=== PATIENT | female | born 1965 | race Hispanic/Latino ===

== ENCOUNTER 2024-10-26 02:10 | Inpatient (IN) | payer OTHER ==
[~2024-10-26] VITALS: Ht 154.9 cm; Wt 50.9 kg
[2024-10-26] VITALS (7 sets, daily range): BP systolic 140–151; BP diastolic 76–89; PULSE 61–79; RESP 18; TEMP 97.7–98.1; O2SAT 96–97
[2024-10-26] MEDS ORDERED: acetaMINOPHEN 650 MG SUPPOSITORY RC PRN (04:00)
[2024-10-26] MEDS ORDERED: ondanSETRON 4MG INJ IV PRN (04:00)
[2024-10-26] MEDS ORDERED: hydrALAZine 20MG/ML VIAL IV PRN (04:00)
--- NOTE | 2024-10-26 04:11 | HP ---
History of Present Illness Reason for Visit: Abdominal pain History of Present Illness Ms. Olvera is a 59-year-old female that was seen and examined today on 10/26/2024. Patient is a good historian of personal health. Patient states that she went to a freestanding Emergency Department, exceptional with a chief complaint of abdominal pain. Onset was 2:00 a.m. on 10/25/2024. Location is epigastric. Duration is constant with pain that waxes and wanes. Character is described as pressure. There was no alleviating factors. There was no aggravating factors. Patient reports associated nausea without any vomiting. At the freestanding Emergency Department patient was diagnosed with small-bowel obstruction. Transfer request was made so that patient could be evaluated by General surgery Service. Patient arrived with NG tube in place to left nare Past Medical History ADDITIONAL PAST MEDICAL HISTORY: [Celiac disease] SOCIAL HISTORY: [Negative for smoking, alcohol use, drug use. 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 Patient is typically independent of all her ADLs. Patient denies difficulty paying her bills. Patient has good access to health care through her insurance. Patient lives with the daughter Leonardo Velez] SURGICAL HISTORY: [Cholecystectomy, appendectomy] Review of Systems General: No Fever, No Chills, No Night Sweats, No Fatigue, No Malaise, No Appetite, No Other HEENT: No Head Aches, No Visual Changes, No Eye Pain, No Ear Pain, No Dysphasia, No Sinus Congestion, No Post Nasal Drip, No Sore Throat, No Other Pulmonary: No Dyspnea, No Cough, No Pleuritic Chest Pain, No Other Cardiovascular: No: Chest Pain, Palpitations, Orthopnea, Paroxysmal Noc. Dyspnea, Edema, Lt Headedness, Other Gastrointestinal: Nausea, Abdominal Pain; No: Vomiting, Diarrhea, Constipation, Melena, Hematochezia, Other Genitourinary: No Dysuria, No Frequency, No Incontinence, No Hematuria, No Retention, No Other Musculoskeletal: No: other, neck pain, shoulder pain, arm pain, back pain, hand pain, leg pain, foot pain Skin: No Urticaria, No Rash, No Other Neurological: No: Weakness, Numbness, Incoordination, Change in speech, Confusion, Seizures, Other Allergies: Coded Allergies: No Known Drug Allergies (Unverified Allergy, Unknown, 10/26/24) Exam Vital Signs Vital Signs Date Time Temp Pulse Resp B/P (MAP) Pulse Ox O2 Delivery O2 Flow Rate FiO2 10/26/24 03:20 97 Room Air* 0 21 General Appearance: Alert, Oriented X3, Cooperative, No acute distress HEENT: Atraumatic, EOMI Respiratory: Clear to auscultation, Normal air movement Cardiovascular: Regular rate, Regular rhythm, Normal S1, Normal S2 Abdominal: Soft, No tenderness Extremities: No edema Skin: No breakdown, No significant lesion Neuro: Normal gait, Normal speech, Strength at 5/5 X4 ext, Sensation intact, Cranial nerves 3-12 NL Psych/Mental Status: Mental status NL, Mood NL, Thoughts/Content NL Assessment/Plan ASSESSMENT: [ Small-bowel obstruction, POA Celiac disease] PLAN: [ Admit patient to medical floor as inpatient status. Patient will be followed by General surgery Service. Keep patient NPO. Nasogastric tube to intermittent wall suction. IV fluid maintenance therapy lactated Ringer's at 75 mL/HR As needed analgesia with morphine. Consider resuming home medications once patient is no longer NPO and home medications has been reconciled. GI prophylaxis, famotidine DVT prophylaxis, Gino's and SCDs ADVANCED CARE PLANNING 1. Which of the following were discussed? Hospice Care - Yes Therapeutic options - Yes Advance Directives - Yes - patient states that she does not have any advance directives in place at this time, however her daughter poly can make decisions for her if she becomes unable. Other discussions - patient wishes to remain a full code at this time 2. Discussed with who? Patient 3. Voluntary nature of this service was explained to the patient? Yes 4. Amount of time spent - __ 16 minutes 5. Reviewed by Physician? (if this service was performed by NPP) Yes This document was generated in part using voice recognition software, occasional wrong word or sound alike substitutions may have occurred due to the inherent limitations of voice recognition software. Read the chart carefully and recognize using context, where the substitutions have occurred. Although every effort was made to edit the content, switchboard and control room operator and typing errors may occur ATTESTATION BY PHYSICIAN I have seen and examined the patient. I reviewed the documentation, medical decision making, and treatment plan as noted by the mid-level provider above. I agree with the findings and plan of care. SELINA STONE COMPLIANCE PROGRAM MANAGER October 26, 2024 04:11
[2024-10-26] MEDS: LACTATED RINGERS 1000ML 1,000 ML IV SCH (04:28)
--- NOTE | 2024-10-26 04:35 | EKG ---
[facility] Test Date: 2024-10-26 Test Time: 03:31:17 Pat Name: YAMILET GAMBLE Department: [facility] Room: 330 1 Gender: F Gar[employer] Pick Up Man: JOSEPH : 1965 Requested By: SELINA STONE Order Number: [id number] Reading MD: Guanako York Measurements Intervals Crozier Rate: 66 P: 46 AR: 144 QRS: 21 QRSD: 86 T: 49 QT: 436 QTc: 457 Interpretive Statements Normal sinus rhythm No previous ECG available for comparison Electronically Signed On 10-26-2024 16:18:35 CDT by Guanako York Please click the below link to view image of tracing.
[2024-10-26 06:35] LABS: BASOPHILS # (AUTO) 0.03 K/uL (0.00-0.20); BASOPHILS % (AUTO) 0.4 % (0.0-5.0); EOSINOPHILS % (AUTO) 2.4 % (0.0-8.0); HEMATOCRIT 32.2 % (36-48); IMMATURE GRANULOCYTE ABSOLUTE 0.03 K/uL (0-1); LYMPHOCYTES # (AUTO) 1.5 K/uL (1.0-4.8); LYMPHOCYTES % (AUTO) 17.4 % (21.0-51.0); MEAN CORPUSCULAR HEMOGLOBIN 26.5 pg (27.0-33.0); MEAN CORPUSCULAR HGB CONC 33.5 g/dL (32.0-36.0); MEAN CORPUSCULAR VOLUME 78.9 fL (79-99); MONOCYTES # (AUTO) 0.6 K/uL (0.1-1.0); MONOCYTES % (AUTO) 6.5 % (3.0-13.0); NEUTROPHILS # (AUTO) 6.1 K/uL (1.8-7.7); NEUTROPHILS % (AUTO) 72.9 % (40.0-77.0); PLATELET COUNT (AUTO) 293 K/uL (130-400); RED BLOOD CELL COUNT(AUTO) 4.08 MIL/uL (4.00-5.50); RED CELL DISTRIBUTION WIDTH 14.4 % (11.0-15.5); WHITE BLOOD COUNT (AUTO) 8.4 K/uL (4.8-10.8)
[2024-10-26 06:57] LABS: ALBUMIN 2.9 g/dL (3.5-5.0); BILIRUBIN,TOTAL 0.4 mg/dL (0.2-1.0); CREATININE 0.8 mg/dL (0.5-1.0); MAGNESIUM 1.7 mg/dL (1.80-2.40); PHOSPHORUS 4.8 mg/dL (2.5-4.9); POTASSIUM 3.9 mmol/L (3.5-5.1); TOTAL PROTEIN, SERUM 6.4 g/dL (6.0-8.3)
[2024-10-26 07:04] LABS: INR 1.04 (0.85-1.15)
[2024-10-26 07:06] LABS: PARTIAL THROMBOPLASTIN TIME 29.9 SEC (26.3-35.5)
[2024-10-26] MEDS ORDERED: PoTASSium chloRIDE 20MEQ/100ML 100 ML IV PRN (09:00)
[2024-10-26 09:05] LABS: APPEARANCE,URINE CLEAR (CLEAR); BILIRUBIN,URINE NEGATIVE (NEGATIVE); COLOR,URINE COLORLESS (YELLOW); GLUCOSE, URINE (UA) NEGATIVE (NEGATIVE); KETONES,URINE 5 mg/dL (NEGATIVE); LEUKOCYTE ESTERASE ,URINE 25 Leu/uL (NEGATIVE); NITRATE,URINE NEGATIVE (NEGATIVE); OCCULT BLOOD,URINE NEGATIVE (NEGATIVE); PROTEIN,URINE NEGATIVE (NEGATIVE); UROBILINOGEN,URINE 0.2 mg/dL (0.2-1.0)
[2024-10-26] MEDS: FAMOTIDINE 20MG VIAL IV SCH (09:09)
[2024-10-26] MEDS: MAGNESIUM 2GM PREMIX 50ML 50 ML IV PRN (09:10)
[2024-10-26 09:11] LABS: ADD UA MICROSCOPIC YES
[2024-10-26 09:19] LABS: MUCUS,URINE RARE LPF (None Seen)
--- NOTE | 2024-10-26 09:38 | HMCIMG ---
Exam Type: CHEST 1VW Clinical Information: pre procedural Comparison: None Findings: The lungs are clear of infiltrates. The heart is normal in size. The bony and soft tissue structures of the chest are unremarkable. Impression: Clear lungs.
--- NOTE | 2024-10-26 10:37 | CONS ---
GENERAL SURGERY CONSULTATION NOTE Date/Time Patient Seen: October 26, 2024 11:20 a.m. Requesting Physician: [ ] Reason for Consultation: Small bowel obstruction History of Present Illness: This is a 59-year-old female who was evaluated at outside ER for upper abdominal pain that started around 2:00 a.m. in the morning. She had associated nausea and vomiting later on that day. Her last bowel movement was this morning. She denies passing any flatus. Outside CT scan at freestanding ER showed small- bowel obstruction with a transition point. She also has a history of being recently diagnosed with pyelonephritis and kidney stones. She is on antibiot ics. Her blood cultures came back positive for a drug-resistant bacteria. There are no contents in the NG tube canister. Past Medical History: Celiac disease Past Surgical History: Laparoscopic cholecystectomy Laparoscopic appendectomy Family History: Contributory Habits: [Never] smoker. [Denies] alcohol consumption. [Denies] illicit drug use Current Medications Medications (Trade) Dose Ordered Sig/Lizet Route Start Time Stop Time Status Last Admin Dose Admin Famotidine (Pepcid 20mg Vial) 20 mg DAILY IV 10/26/24 09:00 11/25/24 08:59 10/26/24 09:09 20 MG Lactated Ringer's 1,000 ml @ 75 mls/hr [id number] IV 10/26/24 04:00 11/25/24 03:59 10/26/24 04:28 75 MLS/HR Review of Systems: CONST: [No fever, fatigue, or weight changes.] EYES: [No recent vision problems.] ENT: [No congestion, ear pain, or sore throat.] C/V: [No chest pain, palpitations, or edema.] RESP: [No cough, congestion, wheezing or shortness of breath.] GI: [Positive for abdominal pain, nausea and vomiting : [No incontinence or dysuria.] SKIN: [No rash.] NEURO: [No headache, focal numbness or weakness, dizziness, or seizures.] PSYCH: [No depression or anxiety.] HEME: [No abnormal bruising or bleeding.] LYMPH: [No swollen glands.] Physical Examination: GENERAL: [No acute distress.] HEAD: [Normal with no signs of head trauma.] EYES: [PERRLA, EOMI, conjunctiva and sclera normal.] ENT: [Hearing grossly intact, normal oropharynx.] NECK: [Supple without JVD. There is no tenderness, lymphadenopathy, or masses. No thyromegaly. Normal carotid upstrokes without bruits.] LUNGS: [Clear breath sounds bilaterally. There are right basilar rales one third of the way up the chest. No wheezes, or rhonchi.] HEART: [Normal rate and rhythm. Normal S1 and S2 without mumurs, gallop or rub.] VASC: [Peripheral pulses +2 bilaterally.] ABD: [Bowel sounds normal, soft, nontender, nondistended, no masses, no organomegaly. No audible bruits.] : [Not examined] LYMPH: [No lymphadenopathy noted.] EXT: [No clubbing, cyanosis or edema.] SKIN: [No rashes or lesions noted.] NEURO: [Awake, alert, and oriented x3. No focal sensory or strength deficits noted.] Vital Signs (last 8hr) Date Time Temp Pulse Resp B/P (MAP) Pulse Ox O2 Delivery O2 Flow Rate FiO2 10/26/24 07:52 97.7 76 18 145/80 96 Room Air 10/26/24 03:20 97.7 61 18 147/89 98 Room Air 10/26/24 03:20 97 Room Air* 0 21 10/26/24 03:20 97 Room Air* 0 21 Laboratory: [ ] Hematology Labs: Test 10/26/24 06:13 Range/Units White Blood Count 8.4 4.8-10.8 K/uL Red Blood Count 4.08 4.00-5.50 MIL/uL Hemoglobin 10.8 L 12.0-16.0 g/dL Hematocrit 32.2 L 36-48 % Mean Corpuscular Volume 78.9 L 79-99 fL Mean Corpuscular Hemoglobin 26.5 L 27.0-33.0 pg Mean Corpuscular Hemoglobin Concent 33.5 32.0-36.0 g/dL Red Cell Distribution Width 14.4 11.0-15.5 % Platelet Count 293 130-400 K/uL Mean Platelet Volume 8.6 7.5-10.5 fL Immature Granulocyte % (Auto) 0.4 0-1 % Neutrophils (%) (Auto) 72.9 40.0-77.0 % Lymphocytes (%) (Auto) 17.4 L 21.0-51.0 % Monocytes (%) (Auto) 6.5 3.0-13.0 % Eosinophils (%) (Auto) 2.4 0.0-8.0 % Basophils (%) (Auto) 0.4 0.0-5.0 % Neutrophils # (Auto) 6.1 1.8-7.7 K/uL Lymphocytes # (Auto) 1.5 1.0-4.8 K/uL Monocytes # (Auto) 0.6 0.1-1.0 K/uL Eosinophils # (Auto) 0.20 0.00-0.70 K/uL Basophils # (Auto) 0.03 0.00-0.20 K/uL Absolute Immature Granulocyte (auto 0.03 0-1 K/uL Nucleated Red Blood Cells 0.0 0.0-0.19 % Chemistry Labs: Test 10/26/24 06:13 Range/Units Sodium Level 142 136-145 mmol/L Potassium Level 3.9 3.5-5.1 mmol/L Chloride Level 106 101-111 mmol/L Carbon Dioxide Level 29 21-32 mmol/L Blood Urea Nitrogen 12 7-18 mg/dL Creatinine 0.8 0.5-1.0 mg/dL Glomerular Filtration Rate Calc 86 >90 mL/min Random Glucose 87 70-105 mg/dL Total Calcium 8.9 8.5-10.1 mg/dL Phosphorus Level 4.8 2.5-4.9 mg/dL Magnesium Level 1.70 L 1.80-2.40 mg/dL Total Bilirubin 0.4 0.2-1.0 mg/dL Aspartate Amino Transf (AST/SGOT) 15 10-37 U/L Alanine Aminotransferase (ALT/SGPT) 14 12-78 U/L Alkaline Phosphatase 54 50-136 U/L Total Protein 6.4 6.0-8.3 g/dL Albumin 2.9 L 3.5-5.0 g/dL Coagulation Labs: Test 10/26/24 06:13 Range/Units Prothrombin Time 11.0 9.6-11.6 SEC Prothromb Time International Ratio 1.04 0.85-1.15 Activated Partial Thromboplast Time 29.9 26.3-35.[address] scan of the abdomen and pelvis showed high-grade small-bowel obstruction with transition point in right of midline at level L4-L5. There was no free air or there is no free fluid. Chest x-ray last night shows NG tube tip terminating in the cardia of the stomach. The suction Hole is actually in the esophagus abdominal film done this morning shows the same thing as well as dilated small bowel Diagnostics / Radiology: Assessment: 59-year-old female with small-bowel obstruction. I thought that she might have an ileus from the pyelonephritis however after reviewing the outside CT scan it looks more like a small bowel obstruction. She has not had any output out the NG tube because it is not in the correct position. She has a benign abdomen on physical exam (nontender, nondistended) but her radiographic films show evidence of a small-bowel obstruction. Plan: One. Continue NPO Two. Continue NG tube to low intermittent wall suction. We will order the nurse to advanced the NG tube 10 cm so that the actual suction port is in the stomach. Three. Repeat abdominal film tomorrow morning Four. Await for return of bowel function Five. Hospitalist team to manage pyelonephritis Six. Surgery to follow FRANCIS MENEZES MD October 26, 2024 10:36
--- NOTE | 2024-10-26 11:53 | NUR ---
DCP: HOME Pt currently lives with dgt Mini Olvera [phone] in a home. Pt denied any insecurities with food, mcc, and/or utilities. Pt does not have any DME, home health, or provider services. Pt is able to complete ADLs independently. PCP is Dr. Giorgio Hopkins and uses [facility] for any RX needs. At [place] pt will return home and dgt will assist with transportation. Addendum: 10/26/24 at 1155 by MUNA CONNOR SS Amended: Links added.
[2024-10-26] MEDS ORDERED: 0.9%NACL 50ML IV SCH (12:00)
--- NOTE | 2024-10-26 12:12 | HMCIMG ---
Exam Type: ABD 1VW Clinical Information: sbo Comparison: None Findings: Abdomen demonstrates no evidence of pathologic calcification or soft tissue mass. There are no radiopacities to suggest calculous disease. The intestinal gas pattern is within normal limits without evidence of dilatation to suggest obstruction or adynamic ileus. The bony structures are unremarkable. IMPRESSION: Normal abdomen.
[2024-10-26] MEDS: ZOSYN 3.375GM +NS 50ML IVPB SCH (12:23)
--- NOTE | 2024-10-26 12:39 | HMCIMG ---
Exam Type: ABD 1VW Clinical Information: VERIFY NGT PLACEMENT Comparison: None Findings: Abdomen demonstrates no evidence of pathologic calcification or soft tissue mass. There are no radiopacities to suggest calculous disease. The intestinal gas pattern is within normal limits without evidence of dilatation to suggest obstruction or adynamic ileus. The bony structures are unremarkable. IMPRESSION: Normal abdomen.
--- NOTE | 2024-10-26 13:39 | PN ---
[facility] PROGRESS NOTE Date of Service: October 26, 2024 Time of Service: 13:24 SUBJECTIVE: HPI Patient is a 59-year-old female that was seen and examined today on 10/26/2024. Patient is a good historian of personal health. Patient states that she went to a freestanding Emergency Department, exceptional with a chief complaint of abdominal pain. Onset was 2:00 a.m. on 10/25/2024. Location is epigastric. Duration is constant with pain that waxes and wanes. Character is described as pressure. There was no alleviating factors. There was no aggravating factors. Patient reports associated nausea without any vomiting. At the freestanding Emergency Department patient had a CT abdomen and pelvis and was diagnosed with small-bowel obstruction. Transfer request was made so that patient could be evaluated by General surgery Service. Patient arrived with NG tube in place to left nares. Interval History 10/26/24: Lying in bed at the time of evaluation. Alert and oriented and in no obvious distress.Patient has an NG tube to the left nares connected to intermittent suction. However no out can be seen. Patient denies any abdominal pain, nausea or vomiting. States that she has not had flatus but had a bowel movement this morning which was normal in consistency. Vital signs were unremarkable, Magnesium 1.7 which was replaced as per protocol. General surgery is on the case. Was seen by Dr Menezes this morning. Pending recommendations. Patient with positive blood culture results from urgent care. Will start patient on Zosyn 3.375mg IV. REVIEW OF SYSTEMS CONSTITUTIONAL: Denies fevers, chills, or night sweats. No unintentional weight loss reported. NEUROLOGICAL: Denies headache, amaurosis fugax, motor weakness, sensory deficit, vertigo/spinning sensation, gait abnormalities, or tremors. ENT: No hearing loss, otalgia, otorrhea, rhinitis, rhinorrhea, hoarseness, or sore throat. CARDIOVASCULAR: Denies any exertional angina, dyspnea on exertion, orthopnea, paroxysmal nocturnal dyspnea, palpitations, life-threatening arrhythmias, claudication. PULMONARY: Denies any shortness of breath, cough, phlegm/sputum, hemoptysis, pleuritic chest pain. SLEEP: Denies morning headaches, daytime somnolence or napping. Denies difficulty falling asleep, staying asleep, waking from sleep. Denies knowledge of snoring. GASTROINTESTINAL: Denies any type of dysphagia to either liquids or solids. Denies nausea, vomiting, pyrosis, early satiety, abdominal pain, diarrhea, constipation, or changes in stool consistency or caliber. Denies coffee-ground emesis, hematemesis, hematochezia, or melanotic stools. GENITOURINARY: Denies frequency, urgency, nocturia, hematuria or incontinence (Storage/Irritative symptoms.) Low urinary stream, straining to void, urinary intermittency or hesitancy, splitting of the voiding stream, terminal dribbling. ENDOCRINOLOGIC: Denies polyuria, polydipsia, polyphagia or heat/cold intolerances. HEMATOLOGIC: Denies thrombophilia/previous clots, or coagulopathy/bleeding disorders. ONCOLOGIC: Denies personal history of malignancy. DERMATOLOGIC: Denies rashes or pruritus. PSYCHIATRIC: Denies any suicidal or homicidal ideation. Denies hallucinations. PHYSICAL EXAM GENERAL APPEARANCE: The patient is awake, alert, and oriented, in no acute cardiopulmonary distress. NEUROLOGICAL: Cranial nerves II-XII grossly intact. Motor is 5/5 in bilateral upper and lower extremities proximal to distal. No sensory deficits. HEENT: Face is symmetric. Pupils are equal and reactive. Extraocular movements are intact. NECK: Supple. No JVD. No thyromegaly. No submental, submandibular, pre- /postauricular, occipital or supraclavicular lymphadenopathy. CHEST: Normal chest expansion. No Telemetry. LUNGS: Absence of any rales, rhonchi or any wheezing. CARDIOVASCULAR: Regular. S1 and S2 normal. No appreciable rubs, murmurs or gallops. ABDOMEN: Soft, nontender, and nondistended. There is no rebound, voluntary guarding, or rigidity. : Deferred. No Draper. EXTREMITIES: Non-edematous and not cyanotic. No clubbing. Good capillary refill. SKIN: No skin breakdown. Vital Signs (last 8hr) Date Time Temp Pulse Resp B/P (MAP) Pulse Ox O2 Delivery O2 Flow Rate FiO2 10/26/24 11:50 97.9 71 18 140/76 97 Room Air 10/26/24 07:52 97.7 76 18 145/80 96 Room Air LABS: Laboratory: Test 10/26/24 08:35 10/26/24 06:13 Range/Units Urine Color COLORLESS YELLOW Urine Appearance CLEAR CLEAR Urine pH 6.0 5.0-8.0 Urine Specific [place] 1.012 1.001-1.031 Urine Protein NEGATIVE NEGATIVE mg/dL Urine Glucose (UA) NEGATIVE NEGATIVE mg/dL Urine Ketones 5 H NEGATIVE mg/dL Urine Occult Blood NEGATIVE NEGATIVE Urine Nitrate NEGATIVE NEGATIVE Urine Bilirubin NEGATIVE NEGATIVE mg/dL Urine Urobilinogen 0.2 0.2-1.0 mg/dL Urine Leukocyte Esterase 25 H NEGATIVE Raji/uL Urine RBC 2-5 H 0-1 /HPF Urine WBC 11-25 H 0-1 /HPF Urine Bacteria None None Seen /HPF White Blood Count 8.4 4.8-10.8 K/uL Red Blood Count 4.08 4.00-5.50 MIL/uL Hemoglobin 10.8 L 12.0-16.0 g/dL Hematocrit 32.2 L 36-48 % Mean Corpuscular Volume 78.9 L 79-99 fL Mean Corpuscular Hemoglobin 26.5 L 27.0-33.0 pg Mean Corpuscular Hemoglobin Concent 33.5 32.0-36.0 g/dL Red Cell Distribution Width 14.4 11.0-15.5 % Platelet Count 293 130-400 K/uL Mean Platelet Volume 8.6 7.5-10.5 fL Immature Granulocyte % (Auto) 0.4 0-1 % Neutrophils (%) (Auto) 72.9 40.0-77.0 % Lymphocytes (%) (Auto) 17.4 L 21.0-51.0 % Monocytes (%) (Auto) 6.5 3.0-13.0 % Eosinophils (%) (Auto) 2.4 0.0-8.0 % Basophils (%) (Auto) 0.4 0.0-5.0 % Neutrophils # (Auto) 6.1 1.8-7.7 K/uL Lymphocytes # (Auto) 1.5 1.0-4.8 K/uL Monocytes # (Auto) 0.6 0.1-1.0 K/uL Eosinophils # (Auto) 0.20 0.00-0.70 K/uL Basophils # (Auto) 0.03 0.00-0.20 K/uL Absolute Immature Granulocyte (auto 0.03 0-1 K/uL Nucleated Red Blood Cells 0.0 0.0-0.19 % Prothrombin Time 11.0 9.6-11.6 SEC Prothromb Time International Ratio 1.04 0.85-1.15 Activated Partial Thromboplast Time 29.9 26.3-35.5 SEC Sodium Level 142 136-145 mmol/L Potassium Level 3.9 3.5-5.1 mmol/L Chloride Level 106 101-111 mmol/L Carbon Dioxide Level 29 21-32 mmol/L Blood Urea Nitrogen 12 7-18 mg/dL Creatinine 0.8 0.5-1.0 mg/dL Glomerular Filtration Rate Calc 86 >90 mL/min Random Glucose 87 70-105 mg/dL Total Calcium 8.9 8.5-10.1 mg/dL Phosphorus Level 4.8 2.5-4.9 mg/dL Magnesium Level 1.70 L 1.80-2.40 mg/dL Total Bilirubin 0.4 0.2-1.0 mg/dL Aspartate Amino Transf (AST/SGOT) 15 10-37 U/L Alanine Aminotransferase (ALT/SGPT) 14 12-78 U/L Alkaline Phosphatase 54 50-136 U/L Total Protein 6.4 6.0-8.3 g/dL Albumin 2.9 L 3.5-5.0 g/dL Current Medications Medications (Trade) Dose Ordered Sig/Lizet Route PRN Reason Start Time Stop Time Status Last Admin Dose Admin Acetaminophen (TYLenol 650MG SUPPOSITORY) 650 mg Q6H PRN RC MILD PAIN (1-3) 10/26/24 04:00 11/25/24 03:59 Famotidine (Pepcid 20mg Vial) 20 mg DAILY IV 10/26/24 09:00 11/25/24 08:59 10/26/24 09:09 20 MG Hydralazine HCl (APRESOLine 20MG INJ) 10 mg Q6H PRN IV For:SBP above 160;DBP above 90 10/26/24 04:00 11/25/24 03:59 Lactated Ringer's 1,000 ml @ 75 mls/hr [id number] IV 10/26/24 04:00 11/25/24 03:59 10/26/24 04:28 75 MLS/HR Magnesium Sulfate 50 ml @ 0 mls/hr PROTOCOL PRN IV PHARMACY DOSING 10/26/24 09:00 11/25/24 08:59 10/26/24 09:10 25 MLS/HR Morphine Sulfate (morPHINE 2MG SYG) 2 mg Q4H PRN IVP SEVERE PAIN (7-10) 10/26/24 04:30 11/02/24 04:29 Ondansetron HCl (zoFRAN 4MG INJ) 4 mg Q6H PRN IV NAUSEA/VOMITING 10/26/24 04:00 11/25/24 03:59 Piperacillin Sod/ Tazobactam Sod (Zosyn 3.375gm+NS 50ml) 3.375 gm Q8H IVPB 10/26/24 12:00 11/05/24 11:59 10/26/24 12:23 3.375 GM Potassium Chloride 100 ml @ 100 mls/hr AD PRN IV POTASSIUM PROTOCOL 10/26/24 09:00 11/25/24 08:59 Potassium Chloride (K-Dur/Klor-Con 20meq) 20 meq AD PRN PO POTASSIUM PROTOCOL 10/26/24 09:00 11/25/24 08:59 Potassium Chloride (KCl 10% Elixir 20meq/15ml) 20 meq AD PRN PO POTASSIUM PROTOCOL 10/26/24 09:00 11/25/24 08:59 Sodium Chloride (NS 50ml) 50 ml AD IV 10/26/24 12:00 11/25/24 11:59 DIAGNOSTICS / RADIOLOGY: PATIENT: YAMILET GAMBLE MR#: [id number] : 1965 SEX: F AGE: 59 LOCATION: [facility] ORDER [id number] STATUS: ADM IN REPORT#: [id number] SERVICE 1037 REASON: sbo ORDERING PHYSICIAN: FRANCIS MENEZES MD PROCEDURE: ABD 1VW - ABD 1VW Exam Type: ABD 1VW Clinical Information: sbo Comparison: None Findings: Abdomen demonstrates no evidence of pathologic calcification or soft tissue mass. There are no radiopacities to suggest calculous disease. The intestinal gas pattern is within normal limits without evidence of dilatation to suggest obstruction or adynamic ileus. The bony structures are unremarkable. IMPRESSION: Normal abdomen. DICTATED BY: SUZANNE VAUGHN MD DATE: 10/26/24 1209 ELECTRONICALLY SIGNED BY: SUZANNE VAUGHN MD DATE: 10/26/24 1212 ASSESSMENT: Small-bowel obstruction, POA Celiac disease POA Hypomagnesemia PLAN: General Surgery on the casen. Seen by Dr Menezes today. Keep patient NPO. Zosyn 3.375g IV ordered Hypomagnesemia. Replace as per protocol Repeat blood cultures ordered. Consult placed for Infectious Disease due to positive blood cultures. Pending recommendations. Nasogastric tube to intermittent wall suction. IV fluid maintenance therapy lactated Ringer's at 75 mL/HR As needed analgesia with morphine. GI prophylaxis, famotidine DVT prophylaxis, Gino's and SCDs PLAN: [ ] ATTESTATION BY PHYSICIAN I have seen and examined the patient. I reviewed the documentation, medical decision making, and treatment plan as noted by the resident provider above. I agree with the findings and plan of care. Thomas Vickers MD OBI,SILVANO Cali MD October 26, 2024 13:39
--- NOTE | 2024-10-26 15:57 | HMCIMG ---
Exam Type: CHEST 1VW Clinical Information: ng tube placement Comparison: None Findings: Nasogastric tube tip is noted in patient's stomach and no other interval changes are seen. IMPRESSION: Nasogastric tube tip in stomach.
--- NOTE | 2024-10-26 15:57 | HMCIMG ---
Exam Type: CHEST 1VW Clinical Information: ngt placement Comparison: None Findings: Nasogastric tube tip is noted in patient's stomach and no other interval changes are seen. IMPRESSION: Nasogastric tube tip in stomach.
--- NOTE | 2024-10-26 17:00 | HMCIMG ---
Exam Type: CHEST 1VW Clinical Information: ngt placement Comparison: None Findings and impression: Nasogastric tube with tip barely in stomach. Consider advancing several centimeters. No other interval changes.
--- NOTE | 2024-10-26 17:03 | HMCIMG ---
Exam Type: CHEST 1VW Clinical Information: ngt placement Comparison: None Findings and impression: More of the nasogastric tube is now coiled within the stomach lumen. No other interval changes.
--- NOTE | 2024-10-26 17:06 | CONS ---
INFECTIOUS DISEASE CONSULTATION NOTE Date of Service: October 26, 2024 Reason for Consultation: Urinary tract infection. Requesting Physician: Dr. Dilcia Pappas. HISTORY OF PRESENT ILLNESS: This is a 59-year-old female patient with past medical history of celiac disease, nephrolithiasis and urinary tract infection who was admitted from an urgent care for evaluation of small-bowel obstruction. Patient reported that she presented to the urgent care with chief complaint of abdominal pain and nausea. Stated that on 10/16/2024 she went to the urgent care for chief complaint of fever and chills and was diagnosed with urinary tract infection and was discharged on cephalexin and levofloxacin p.o which she has been taking. Was noted that the urine culture collected on 10/16/2024 came back positive with E coli and MDRO and the reason for this consult. On this admission the urinalysis is positive. Patient's WBC is 8.4 and a temperature of 97.7�. Patient has been started on Zosyn. On examination today in room 330 patient has an NG tube in place to low intermittent suction and still having some abdominal discomfort. Denied dysuria, urinary frequency and hematuria. Patient remains afebrile and current temperature is 97.9�. No emesis reported. We will continue current antibiotic and we will follow up on the final culture results. REVIEW OF SYSTEMS CONSTITUTIONAL: Reported fever and chills chills 1 week ago. HEAD/FACE: No signs of trauma. EENT: Denies eye pain, blurred vision, double vision, or light sensitivity. RESPIRATORY: Denies shortness of breath, cough, wheezing CARDIOVASCULAR: Denies chest pain, palpitation, syncope GASTROINTESTINAL/ABDOMINAL: Denies constipation and diarrhea. Abdominal pain and nausea, POA. GENITOURINARY: Denies dysuria or hematuria. MUSCULOSKELETAL: Denies joint pain, tenderness, or trauma. INTEGUMENTARY: Denies rash or itchiness NEUROLOGICAL/PSYCH: Denies anxiety, depression, heat or cold intolerance. PAST MEDICAL HISTORY: Celiac disease. Urinary tract infection. Nephrolithiasis. PAST SURGICAL HISTORY: Cholecystectomy. Appendectomy. PAST SOCIAL HISTORY: Denied current use of tobacco, alcohol or any other illicit drug. FAMILY HISTORY: Mother had diabetes mellitus, hypertension and lung cancer. Father had dementia. Coded Allergies: No Known Drug Allergies (Unverified Allergy, Unknown, 10/26/24) PHYSICAL EXAM EYES: Anicteric. Pupils equal and reactive. HENT: No oral thrush seen, moist Oral mucosa. NG tube in place. NECK: Supple, no JVD or thyromegaly. LUNGS: Good air entry. No rales, no rhonchi. CARDIOVASCULAR: S1, S2 regular. No murmur heard. ABDOMEN: Soft, bowel sounds present, no organomegaly. Tender on palpation. CENTRAL NERVOUS SYSTEM: Awake, alert, oriented x 3. SKIN: No rashes, no swelling. LYMPHATICS: No peripheral lymphadenopathy. MUSCULOSKELETAL: No joint swelling, erythema or tenderness. EXTREMITIES: No cyanosis or clubbing. BACK: No deformity, no pressure ulcer. GENITOURINARY: No dysuria or hematuria. Vital Sign (Last 24 Hours) 10/26/24 10/26/24 03:20 16:02 Temp 97.7 Pulse 79 Resp 18 B/P (MAP) 151/86 Pulse Ox 95 O2 Delivery Room Air O2 Flow Rate 0 FiO2 21 Intake & Output (last 24hrs) 10/25/24 10/25/24 10/26/24 14:59 22:59 06:59 Intake Total 0 ml Balance 0 ml LABS: Laboratory: Test 10/26/24 08:35 10/26/24 06:13 Range/Units Urine Color COLORLESS YELLOW Urine Appearance CLEAR CLEAR Urine pH 6.0 5.0-8.0 Urine Specific [place] 1.012 1.001-1.031 Urine Protein NEGATIVE NEGATIVE mg/dL Urine Glucose (UA) NEGATIVE NEGATIVE mg/dL Urine Ketones 5 H NEGATIVE mg/dL Urine Occult Blood NEGATIVE NEGATIVE Urine Nitrate NEGATIVE NEGATIVE Urine Bilirubin NEGATIVE NEGATIVE mg/dL Urine Urobilinogen 0.2 0.2-1.0 mg/dL Urine Leukocyte Esterase 25 H NEGATIVE Raji/uL Urine RBC 2-5 H 0-1 /HPF Urine WBC 11-25 H 0-1 /HPF Urine Bacteria None None Seen /HPF White Blood Count 8.4 4.8-10.8 K/uL Red Blood Count 4.08 4.00-5.50 MIL/uL Hemoglobin 10.8 L 12.0-16.0 g/dL Hematocrit 32.2 L 36-48 % Mean Corpuscular Volume 78.9 L 79-99 fL Mean Corpuscular Hemoglobin 26.5 L 27.0-33.0 pg Mean Corpuscular Hemoglobin Concent 33.5 32.0-36.0 g/dL Red Cell Distribution Width 14.4 11.0-15.5 % Platelet Count 293 130-400 K/uL Mean Platelet Volume 8.6 7.5-10.5 fL Immature Granulocyte % (Auto) 0.4 0-1 % Neutrophils (%) (Auto) 72.9 40.0-77.0 % Lymphocytes (%) (Auto) 17.4 L 21.0-51.0 % Monocytes (%) (Auto) 6.5 3.0-13.0 % Eosinophils (%) (Auto) 2.4 0.0-8.0 % Basophils (%) (Auto) 0.4 0.0-5.0 % Neutrophils # (Auto) 6.1 1.8-7.7 K/uL Lymphocytes # (Auto) 1.5 1.0-4.8 K/uL Monocytes # (Auto) 0.6 0.1-1.0 K/uL Eosinophils # (Auto) 0.20 0.00-0.70 K/uL Basophils # (Auto) 0.03 0.00-0.20 K/uL Absolute Immature Granulocyte (auto 0.03 0-1 K/uL Nucleated Red Blood Cells 0.0 0.0-0.19 % Prothrombin Time 11.0 9.6-11.6 SEC Prothromb Time International Ratio 1.04 0.85-1.15 Activated Partial Thromboplast Time 29.9 26.3-35.5 SEC Sodium Level 142 136-145 mmol/L Potassium Level 3.9 3.5-5.1 mmol/L Chloride Level 106 101-111 mmol/L Carbon Dioxide Level 29 21-32 mmol/L Blood Urea Nitrogen 12 7-18 mg/dL Creatinine 0.8 0.5-1.0 mg/dL Glomerular Filtration Rate Calc 86 >90 mL/min Random Glucose 87 70-105 mg/dL Total Calcium 8.9 8.5-10.1 mg/dL Phosphorus Level 4.8 2.5-4.9 mg/dL Magnesium Level 1.70 L 1.80-2.40 mg/dL Total Bilirubin 0.4 0.2-1.0 mg/dL Aspartate Amino Transf (AST/SGOT) 15 10-37 U/L Alanine Aminotransferase (ALT/SGPT) 14 12-78 U/L Alkaline Phosphatase 54 50-136 U/L Total Protein 6.4 6.0-8.3 g/dL Albumin 2.9 L 3.5-5.0 g/dL ASSESSMENT: Urinary tract infection with E coli. Infection with multidrug resistant organism. Abdominal pain. Small bowel obstruction. Nephrolithiasis. PLAN: Continue Zosyn as currently ordered. Continue pain management. Continue GI prophylaxis. General surgery following patient. We will follow up on the culture results. We will monitor electrolytes. Antibiotics to be adjusted when culture is updated or finalized. Thank you for allowing [facility] to participate in the care of this patient. This case was reviewed and discussed with my supervising physician and the above assessment and plan was formulated and agreed upon. ATTESTATION BY PHYSICIAN I have seen and examined the patient. I reviewed the documentation, medical dec ision making, and treatment plan as noted by the mid-level provider above. I agree with the findings and plan of care. TRAE CORBETT MD, [facility] October 26, 2024 17:06
[2024-10-27] VITALS (9 sets, daily range): BP systolic 145–157; BP diastolic 83–98; PULSE 70–86; RESP 16–20; TEMP 97.7–98.2; O2SAT 99
[2024-10-27] MEDS: morPHINE 2 MG SYG IVP PRN (00:10)
[2024-10-27 07:05] LABS: BASOPHILS # (AUTO) 0.03 K/uL (0.00-0.20); BASOPHILS % (AUTO) 0.3 % (0.0-5.0); EOSINOPHILS % (AUTO) 1.9 % (0.0-8.0); IMMATURE GRANULOCYTE ABSOLUTE 0.04 K/uL (0-1); LYMPHOCYTES # (AUTO) 1.5 K/uL (1.0-4.8); LYMPHOCYTES % (AUTO) 13.9 % (21.0-51.0); MEAN CORPUSCULAR HEMOGLOBIN 26.3 pg (27.0-33.0); MEAN CORPUSCULAR HGB CONC 33.2 g/dL (32.0-36.0); MEAN CORPUSCULAR VOLUME 79.1 fL (79-99); MONOCYTES # (AUTO) 0.5 K/uL (0.1-1.0); MONOCYTES % (AUTO) 4.3 % (3.0-13.0); NEUTROPHILS # (AUTO) 8.4 K/uL (1.8-7.7); NEUTROPHILS % (AUTO) 79.2 % (40.0-77.0); PLATELET COUNT (AUTO) 264 K/uL (130-400); RED CELL DISTRIBUTION WIDTH 14.6 % (11.0-15.5); WHITE BLOOD COUNT (AUTO) 10.5 K/uL (4.8-10.8)
[2024-10-27 07:17] LABS: BILIRUBIN,TOTAL 0.5 mg/dL (0.2-1.0); CREATININE 0.8 mg/dL (0.5-1.0); POTASSIUM 3.2 mmol/L (3.5-5.1); TOTAL PROTEIN, SERUM 6.5 g/dL (6.0-8.3)
--- NOTE | 2024-10-27 09:13 | HMCIMG ---
Exam Type: ABD 1VW Clinical Information: sbo Comparison: None Findings: Abdomen demonstrates no evidence of pathologic calcification or soft tissue mass. There are no radiopacities to suggest calculous disease. The intestinal gas pattern is within normal limits without evidence of dilatation to suggest obstruction or adynamic ileus. The bony structures are unremarkable. Nasogastric tube tip in stomach. IMPRESSION: Normal abdomen. No evidence of bowel dilatation to suggest obstruction.
[2024-10-27] MEDS: PoTASSium chloRIDE 20MEQ/100ML 100 ML IV PRN (10:40)
--- NOTE | 2024-10-27 11:52 | PN ---
JEANNINE SHOEMAKER Jr. 10/27/24 1152: This is a 59-year-old female with concerns of resolving small-bowel obstruction Interval history: This 59-year-old female seen in her room resting NG tube advance yesterday but still minimal to no output Patient reporting some flatus but minimal Abdomen nondistended nontender and soft KUB unremarkable for obstruction Physical exam General: Awake alert and oriented Heart: Regular rate and rhythm} NG in place Lungs: Clear to auscultation no distress Abdomen: [Soft, nontender, nondistended Assessment : This is a 59-year-old female with concerns of small bowel obstruction Plan: Patient to remain with the NG tube to LIS Patient encouraged to ambulate Patient to remain NPO until more frequent flatus reported Continue with conservative management No surgical intervention at this time Dr. Menezes to be updated on patient's status Vitals/Labs Vital Signs Date Time Temp Pulse Resp B/P (MAP) Pulse Ox O2 Delivery O2 Flow Rate FiO2 10/27/24 07:47 98.1 74 20 149/85 99 Room Air 21 10/26/24 19:48 0 Laboratory Tests 10/27/24 06:29 Medications Current Medications Acetaminophen 650 mg Q6H PRN RC; Start 10/26/24 at 04:00; Stop 11/25/24 at 03:59 Ondansetron HCl 4 mg Q6H PRN IV; Start 10/26/24 at 04:00; Stop 11/25/24 at 03:59 Morphine Sulfate 2 mg Q4H PRN IVP Last administered on 10/27/24at 00:10; Start 10/26/24 at 04:30; Stop 11/02/24 at 04:29 Lactated Ringer's 1,000 ml @ 75 mls/hr [id number] IV Last administered on 10/27/24at 06:08; Start 10/26/24 at 04:00; Stop 11/25/24 at 03:59 Hydralazine HCl 10 mg Q6H PRN IV; Start 10/26/24 at 04:00; Stop 11/25/24 at 03:59 Famotidine 20 mg DAILY IV Last administered on 10/27/24at 10:39; Start 10/26/24 at 09:00; Stop 11/25/24 at 08:59 Magnesium Sulfate 50 ml @ 0 mls/hr PROTOCOL PRN IV Last administered on 10/26/24at 09:10; Start 10/26/24 at 09:00; Stop 11/25/24 at 08:59 Potassium Chloride 100 ml @ 100 mls/hr AD PRN IV; Start 10/26/24 at 09:00; Stop 10/27/24 at 09:51; Status DC Potassium Chloride 20 meq AD PRN PO; Start 10/26/24 at 09:00; Stop 11/25/24 at 08:59 Potassium Chloride 20 meq AD PRN PO; Start 10/26/24 at 09:00; Stop 11/25/24 at 08:59 Piperacillin Sod/ Tazobactam Sod 3.375 gm Q8H IVPB Last administered on 10/27/24at 03:38; Start 10/26/24 at 12:00; Stop 11/05/24 at 11:59 Sodium Chloride 50 ml AD IV; Start 10/26/24 at 12:00; Stop 11/25/24 at 11:59 Phenylephrine HCl 1 spray ONCE STAT NASAL Last administered on 10/26/24at 15:00; Start 10/26/24 at 14:54; Stop 10/26/24 at 14:56; Status DC Potassium Chloride 100 ml @ 50 mls/hr AD PRN IV Last administered on 10/27/24at 10:40; Start 10/27/24 at 10:00; Stop 11/26/24 at 09:59 FRANCIS MENEZES MD 10/27/24 1822: Patient seen and evaluated earlier today. Agree with above findings. She is now passing more flatus. She is tolerating clear liquid diet. Her abdomen is soft and benign. At this point we will continue clears and if she continues to pass gas consistently in not have any nausea or vomiting. We can DC the NG tube in the morning and start her on a full liquid diet. JEANNINE SHOEMAKER Jr. October 27, 2024 11:52 FRANCIS MENEZES MD October 27, 2024 18:22
--- NOTE | 2024-10-27 12:43 | PN ---
[facility] PROGRESS NOTE Date of Service: October 27, 2024 Time of Service: 12:27 SUBJECTIVE: HPI Patient is a 59-year-old female that was seen and examined today on 10/26/2024. Patient is a good historian of personal health. Patient states that she went to a freestanding Emergency Department, exceptional with a chief complaint of abdominal pain. Onset was 2:00 a.m. on 10/25/2024. Location is epigastric. Duration is constant with pain that waxes and wanes. Character is described as pressure. There was no alleviating factors. There was no aggravating factors. Patient reports associated nausea without any vomiting. At the freestanding Emergency Department patient had a CT abdomen and pelvis and was diagnosed with small-bowel obstruction. Transfer request was made so that patient could be evaluated by General surgery Service. Patient arrived with NG tube in place to left nares. Interval History 10/26/24: Lying in bed at the time of evaluation. Alert and oriented and in no obvious distress.Patient has an NG tube to the left nares connected to intermittent suction. However no out can be seen. Patient denies any abdominal pain, nausea or vomiting. States that she has not had flatus but had a bowel movement this morning which was normal in consistency. Vital signs were unremarkable, Magnesium 1.7 which was replaced as per protocol. General surgery is on the case. Was seen by Dr Menezes this morning. Pending recommendations. Patient with positive blood culture results from urgent care. Will start patient on Zosyn 3.375mg IV. 10/27/24: Lying in bed at the time of evaluation. Alert and oriented and in no obvious distress.Patient has an NG tube to the left nares connected to intermittent suction. However no out can be seen. Patient denies any abdominal pain, nausea or vomiting. States that she has passed flatus several times this morning.Denies any abdominal pain, nausea or vomiting. Vital signs : T 98.1, P 74, R 20, BP 149/85. Labs showed a potassium of 3.2. Will replace as per protocol NG tube was advanced yesterday but still barely any output.. KUB ordered yesterday showed no evidence of bowel dilatation to suggest obstruction. Continue with NPO. Continue with NG tube to low intermittent suction. Patient encouraged to ambulate . Plan to advance diet once flatus is more frequent. REVIEW OF SYSTEMS CONSTITUTIONAL: Denies fevers, chills, or night sweats. No unintentional weight loss reported. NEUROLOGICAL: Denies headache, amaurosis fugax, motor weakness, sensory deficit, vertigo/spinning sensation, gait abnormalities, or tremors. ENT: No hearing loss, otalgia, otorrhea, rhinitis, rhinorrhea, hoarseness, or sore throat. NG tube in place CARDIOVASCULAR: Denies any exertional angina, dyspnea on exertion, orthopnea, paroxysmal nocturnal dyspnea, palpitations, life-threatening arrhythmias, claudication. PULMONARY: Denies any shortness of breath, cough, phlegm/sputum, hemoptysis, pleuritic chest pain. SLEEP: Denies morning headaches, daytime somnolence or napping. Denies difficulty falling asleep, staying asleep, waking from sleep. Denies knowledge of snoring. GASTROINTESTINAL: Denies any type of dysphagia to either liquids or solids. Denies nausea, vomiting, pyrosis, early satiety, abdominal pain, diarrhea, constipation, or changes in stool consistency or caliber. Denies coffee-ground emesis, hematemesis, hematochezia, or melanotic stools. GENITOURINARY: Denies frequency, urgency, nocturia, hematuria or incontinence (Storage/Irritative symptoms.) Low urinary stream, straining to void, urinary intermittency or hesitancy, splitting of the voiding stream, terminal dribbling. ENDOCRINOLOGIC: Denies polyuria, polydipsia, polyphagia or heat/cold intolerances. HEMATOLOGIC: Denies thrombophilia/previous clots, or coagulopathy/bleeding disorders. ONCOLOGIC: Denies personal history of malignancy. DERMATOLOGIC: Denies rashes or pruritus. PSYCHIATRIC: Denies any suicidal or homicidal ideation. Denies hallucinations. PHYSICAL EXAM GENERAL APPEARANCE: The patient is awake, alert, and oriented, in no acute cardiopulmonary distress. NEUROLOGICAL: Cranial nerves II-XII grossly intact. Motor is 5/5 in bilateral upper and lower extremities proximal to distal. No sensory deficits. HEENT: Face is symmetric. Pupils are equal and reactive. Extraocular movements are intact. NG tube in place NECK: Supple. No JVD. No thyromegaly. No submental, submandibular, pre- /postauricular, occipital or supraclavicular lymphadenopathy. CHEST: Normal chest expansion. No Telemetry. LUNGS: Absence of any rales, rhonchi or any wheezing. CARDIOVASCULAR: Regular. S1 and S2 normal. No appreciable rubs, murmurs or gallops. ABDOMEN: Soft, nontender, and nondistended. There is no rebound, voluntary guarding, or rigidity. : Deferred. No Draper. EXTREMITIES: Non-edematous and not cyanotic. No clubbing. Good capillary refill. SKIN: No skin breakdown. Vital Signs (last 8hr) Date Time Temp Pulse Resp B/P (MAP) Pulse Ox O2 Delivery O2 Flow Rate FiO2 10/27/24 12:00 98.1 86 20 151/86 98 Room Air 21 10/27/24 07:47 98.1 74 20 149/85 99 Room Air 21 LABS: Laboratory: Test 10/27/24 06:29 10/26/24 08:35 10/26/24 06:13 Range/Units White Blood Count 10.5 4.8-10.8 K/uL Red Blood Count 4.30 4.00-5.50 MIL/uL Hemoglobin 11.3 L 12.0-16.0 g/dL Hematocrit 34.0 L 36-48 % Mean Corpuscular Volume 79.1 79-99 fL Mean Corpuscular Hemoglobin 26.3 L 27.0-33.0 pg Mean Corpuscular Hemoglobin Concent 33.2 32.0-36.0 g/dL Red Cell Distribution Width 14.6 11.0-15.5 % Platelet Count 264 130-400 K/uL Mean Platelet Volume 8.5 7.5-10.5 fL Immature Granulocyte % (Auto) 0.4 0-1 % Neutrophils (%) (Auto) 79.2 H 40.0-77.0 % Lymphocytes (%) (Auto) 13.9 L 21.0-51.0 % Monocytes (%) (Auto) 4.3 3.0-13.0 % Eosinophils (%) (Auto) 1.9 0.0-8.0 % Basophils (%) (Auto) 0.3 0.0-5.0 % Neutrophils # (Auto) 8.4 H 1.8-7.7 K/uL Lymphocytes # (Auto) 1.5 1.0-4.8 K/uL Monocytes # (Auto) 0.5 0.1-1.0 K/uL Eosinophils # (Auto) 0.20 0.00-0.70 K/uL Basophils # (Auto) 0.03 0.00-0.20 K/uL Absolute Immature Granulocyte (auto 0.04 0-1 K/uL Nucleated Red Blood Cells 0.0 0.0-0.19 % Sodium Level 142 136-145 mmol/L Potassium Level 3.2 L 3.5-5.1 mmol/L Chloride Level 104 101-111 mmol/L Carbon Dioxide Level 28 21-32 mmol/L Blood Urea Nitrogen 10 7-18 mg/dL Creatinine 0.8 0.5-1.0 mg/dL Glomerular Filtration Rate Calc 86 >90 mL/min Random Glucose 70 70-105 mg/dL Total Calcium 8.0 L 8.5-10.1 mg/dL Magnesium Level 1.80 1.80-2.40 mg/dL Total Bilirubin 0.5 0.2-1.0 mg/dL Aspartate Amino Transf (AST/SGOT) 16 10-37 U/L Alanine Aminotransferase (ALT/SGPT) 13 12-78 U/L Alkaline Phosphatase 54 50-136 U/L Total Protein 6.5 6.0-8.3 g/dL Albumin 3.0 L 3.5-5.0 g/dL Urine Color COLORLESS YELLOW Urine Appearance CLEAR CLEAR Urine pH 6.0 5.0-8.0 Urine Specific [place] 1.012 1.001-1.031 Urine Protein NEGATIVE NEGATIVE mg/dL Urine Glucose (UA) NEGATIVE NEGATIVE mg/dL Urine Ketones 5 H NEGATIVE mg/dL Urine Occult Blood NEGATIVE NEGATIVE Urine Nitrate NEGATIVE NEGATIVE Urine Bilirubin NEGATIVE NEGATIVE mg/dL Urine Urobilinogen 0.2 0.2-1.0 mg/dL Urine Leukocyte Esterase 25 H NEGATIVE Raji/uL Urine RBC 2-5 H 0-1 /HPF Urine WBC 11-25 H 0-1 /HPF Urine Bacteria None None Seen /HPF Prothrombin Time 11.0 9.6-11.6 SEC Prothromb Time International Ratio 1.04 0.85-1.15 Activated Partial Thromboplast Time 29.9 26.3-35.5 SEC Phosphorus Level 4.8 2.5-4.9 mg/dL Current Medications Medications (Trade) Dose Ordered Sig/Lizet Route PRN Reason Start Time Stop Time Status Last Admin Dose Admin Acetaminophen (TYLenol 650MG SUPPOSITORY) 650 mg Q6H PRN RC MILD PAIN (1-3) 10/26/24 04:00 11/25/24 03:59 Famotidine (Pepcid 20mg Vial) 20 mg DAILY IV 10/26/24 09:00 11/25/24 08:59 10/27/24 10:39 20 MG Hydralazine HCl (APRESOLine 20MG INJ) 10 mg Q6H PRN IV For:SBP above 160;DBP above 90 10/26/24 04:00 11/25/24 03:59 Lactated Ringer's 1,000 ml @ 75 mls/hr [id number] IV 10/26/24 04:00 11/25/24 03:59 10/27/24 06:08 75 MLS/HR Magnesium Sulfate 50 ml @ 0 mls/hr PROTOCOL PRN IV PHARMACY DOSING 10/26/24 09:00 11/25/24 08:59 10/26/24 09:10 25 MLS/HR Morphine Sulfate (morPHINE 2MG SYG) 2 mg Q4H PRN IVP SEVERE PAIN (7-10) 10/26/24 04:30 11/02/24 04:29 10/27/24 00:10 2 MG Ondansetron HCl (zoFRAN 4MG INJ) 4 mg Q6H PRN IV NAUSEA/VOMITING 10/26/24 04:00 11/25/24 03:59 Phenylephrine HCl (TIARA-synEPHRINE 0.5% NASAL SPRY) 1 spray ONCE STAT NASAL 10/26/24 14:54 10/26/24 14:56 DC 10/26/24 15:00 1 SPRAY Piperacillin Sod/ Tazobactam Sod (Zosyn 3.375gm+NS 50ml) 3.375 gm Q8H IVPB 10/26/24 12:00 11/05/24 11:59 10/27/24 03:38 3.375 GM Potassium Chloride 100 ml @ 50 mls/hr AD PRN IV POTASSIUM PROTOCOL 10/27/24 10:00 11/26/24 09:59 10/27/24 10:40 50 MLS/HR Potassium Chloride 100 ml @ 100 mls/hr AD PRN IV POTASSIUM PROTOCOL 10/26/24 09:00 10/27/24 09:51 DC Potassium Chloride (K-Dur/Klor-Con 20meq) 20 meq AD PRN PO POTASSIUM PROTOCOL 10/26/24 09:00 11/25/24 08:59 Potassium Chloride (KCl 10% Elixir 20meq/15ml) 20 meq AD PRN PO POTASSIUM PROTOCOL 10/26/24 09:00 11/25/24 08:59 Sodium Chloride (NS 50ml) 50 ml AD IV 10/26/24 12:00 11/25/24 11:59 DIAGNOSTICS / RADIOLOGY: PATIENT: YAMILET GAMBLE MR#: [id number] : 1965 SEX: F AGE: 59 LOCATION: 3AH ORDER 2300 STATUS: ADM IN REPORT#: [id number] SERVICE 0800 REASON: sbo ORDERING PHYSICIAN: FRANCIS MENEZES MD PROCEDURE: ABD 1VW - ABD 1VW Exam Type: ABD 1VW Clinical Information: sbo Comparison: None Findings: Abdomen demonstrates no evidence of pathologic calcification or soft tissue mass. There are no radiopacities to suggest calculous disease. The intestinal gas pattern is within normal limits without evidence of dilatation to suggest obstruction or adynamic ileus. The bony structures are unremarkable. Nasogastric tube tip in stomach. IMPRESSION: Normal abdomen. No evidence of bowel dilatation to suggest obstruction. DICTATED BY: SUZANNE VAUGHN MD DATE: 10/27/24910 ELECTRONICALLY SIGNED BY: SUZANNE VAUGHN MD DATE: 10/27/24912 ASSESSMENT: Small-bowel obstruction, POA Celiac disease POA Hypomagnesemia Hypokalemia PLAN *Labs showed a potassium of 3.2. Will replace as per protocol. *NG tube was advanced yesterday but still barely any output. *KUB ordered yesterday showed no evidence of bowel dilatation to suggest obstruction. *Continue with NPO. *Continue with NG tube to low intermittent suction. *Patient encouraged to ambulate . *Plan to advance diet once flatus is more frequent. *General Surgery on the case. Seen by Dr Menezes today. Keep patient NPO. Zosyn 3.375g IV ordered Consult placed for Infectious Disease due to positive blood cultures. Nasogastric tube to intermittent wall suction. IV fluid maintenance therapy lactated Ringer's at 75 mL/HR As needed analgesia with morphine. GI prophylaxis, famotidine DVT prophylaxis, Gino's and SCDs PLAN: [ ] ATTESTATION BY PHYSICIAN I have seen and examined the patient. I reviewed the documentation, medical decision making, and treatment plan as noted by the resident provider above. I agree with the findings and plan of care. ANA ESPINOZA MD OBI,SILVANO Cali MD October 27, 2024 12:43
--- NOTE | 2024-10-27 14:28 | PN ---
INFECTIOUS DISEASE PROGRESS NOTE Date of Service: October 27, 2024 SUBJECTIVE: This is a 59-year-old female patient who was seen and examined at bedside in room 330. Patient is awake, alert and oriented x3. Patient to the NG tube to low intermittent suction. Patient reported she had a bowel movement this morning. Bowel sounds present and abdomen is soft on palpation. No episodes of emesis reported. No fever, temperature is 98.1� and the WBC is 10.5. The preliminary urine culture results collected on this admission is growing Gram-negative rods. We will continue on Zosyn and follow up on the final culture results. PHYSICAL EXAM EYES: Anicteric. Pupils equal and reactive. HENT: No oral thrush seen, moist Oral mucosa. NG tube in place. NECK: Supple, no JVD or thyromegaly. LUNGS: Good air entry. No rales, no rhonchi. CARDIOVASCULAR: S1, S2 regular. No murmur heard. ABDOMEN: Soft, bowel sounds present, no organomegaly. Tenderness on palpation, decreasing. CENTRAL NERVOUS SYSTEM: Awake, alert, oriented x 3. SKIN: No rashes, no swelling. LYMPHATICS: No peripheral lymphadenopathy. MUSCULOSKELETAL: No joint swelling, erythema or tenderness. EXTREMITIES: No cyanosis or clubbing. BACK: No deformity, no pressure ulcer. GENITOURINARY: No dysuria or hematuria. Vital Sign (Last 12 Hours) 10/27/24 10/27/24 10/27/24 04:00 07:47 12:00 Temp 97.7 98.1 98.1 Pulse 72 74 86 Resp 18 20 20 B/P (MAP) 145/87 149/85 151/86 Pulse Ox 98 99 98 O2 Delivery Room Air Room Air Room Air FiO2 21 21 Intake & Output (last 24hrs) 10/26/24 10/26/24 10/27/24 14:59 22:59 06:59 Intake Total 50.0 ml 50.0 ml Balance 50.0 ml 50.0 ml LABS: Laboratory: Test 10/27/24 06:29 10/26/24 08:35 10/26/24 06:13 Range/Units White Blood Count 10.5 4.8-10.8 K/uL Red Blood Count 4.30 4.00-5.50 MIL/uL Hemoglobin 11.3 L 12.0-16.0 g/dL Hematocrit 34.0 L 36-48 % Mean Corpuscular Volume 79.1 79-99 fL Mean Corpuscular Hemoglobin 26.3 L 27.0-33.0 pg Mean Corpuscular Hemoglobin Concent 33.2 32.0-36.0 g/dL Red Cell Distribution Width 14.6 11.0-15.5 % Platelet Count 264 130-400 K/uL Mean Platelet Volume 8.5 7.5-10.5 fL Immature Granulocyte % (Auto) 0.4 0-1 % Neutrophils (%) (Auto) 79.2 H 40.0-77.0 % Lymphocytes (%) (Auto) 13.9 L 21.0-51.0 % Monocytes (%) (Auto) 4.3 3.0-13.0 % Eosinophils (%) (Auto) 1.9 0.0-8.0 % Basophils (%) (Auto) 0.3 0.0-5.0 % Neutrophils # (Auto) 8.4 H 1.8-7.7 K/uL Lymphocytes # (Auto) 1.5 1.0-4.8 K/uL Monocytes # (Auto) 0.5 0.1-1.0 K/uL Eosinophils # (Auto) 0.20 0.00-0.70 K/uL Basophils # (Auto) 0.03 0.00-0.20 K/uL Absolute Immature Granulocyte (auto 0.04 0-1 K/uL Nucleated Red Blood Cells 0.0 0.0-0.19 % Sodium Level 142 136-145 mmol/L Potassium Level 3.2 L 3.5-5.1 mmol/L Chloride Level 104 101-111 mmol/L Carbon Dioxide Level 28 21-32 mmol/L Blood Urea Nitrogen 10 7-18 mg/dL Creatinine 0.8 0.5-1.0 mg/dL Glomerular Filtration Rate Calc 86 >90 mL/min Random Glucose 70 70-105 mg/dL Total Calcium 8.0 L 8.5-10.1 mg/dL Magnesium Level 1.80 1.80-2.40 mg/dL Total Bilirubin 0.5 0.2-1.0 mg/dL Aspartate Amino Transf (AST/SGOT) 16 10-37 U/L Alanine Aminotransferase (ALT/SGPT) 13 12-78 U/L Alkaline Phosphatase 54 50-136 U/L Total Protein 6.5 6.0-8.3 g/dL Albumin 3.0 L 3.5-5.0 g/dL Urine Color COLORLESS YELLOW Urine Appearance CLEAR CLEAR Urine pH 6.0 5.0-8.0 Urine Specific [place] 1.012 1.001-1.031 Urine Protein NEGATIVE NEGATIVE mg/dL Urine Glucose (UA) NEGATIVE NEGATIVE mg/dL Urine Ketones 5 H NEGATIVE mg/dL Urine Occult Blood NEGATIVE NEGATIVE Urine Nitrate NEGATIVE NEGATIVE Urine Bilirubin NEGATIVE NEGATIVE mg/dL Urine Urobilinogen 0.2 0.2-1.0 mg/dL Urine Leukocyte Esterase 25 H NEGATIVE Raji/uL Urine RBC 2-5 H 0-1 /HPF Urine WBC 11-25 H 0-1 /HPF Urine Bacteria None None Seen /HPF Prothrombin Time 11.0 9.6-11.6 SEC Prothromb Time International Ratio 1.04 0.85-1.15 Activated Partial Thromboplast Time 29.9 26.3-35.5 SEC Phosphorus Level 4.8 2.5-4.9 mg/dL ASSESSMENT: Urinary tract infection with E coli (collected at the urgent care). Infection with multidrug resistant organism. Abdominal pain. Small bowel obstruction. Nephrolithiasis. PLAN: Continue Zosyn as currently ordered. Continue pain management. Continue GI prophylaxis. General surgery following patient. We will follow up on the culture results. We will monitor electrolytes. Antibiotics to be adjusted when culture is updated or finalized. This case was reviewed and discussed with my supervising physician and the above assessment and plan was formulated and agreed upon. ATTESTATION BY PHYSICIAN I have seen and examined the patient. I reviewed the documentation, medical decision making, and treatment plan as noted by the mid-level provider above. I agree with the findings and plan of care. TRAE CORBETT MD, [facility] October 27, 2024 14:28
[2024-10-27] MEDS: PoTASSium chl 10% ELIXIR 20MEQ 20 MEQ/15 ML UDCUP PO PRN (14:54)
[2024-10-28 03:12] VITALS: BP 161/93; PULSE 70; RESP 20; TEMP 98
[2024-10-28] MEDS: PoTASSium chloRIDE 20MEQ ER 20 MEQ ERTAB PO PRN (06:48)
[2024-10-28 07:29] LABS: ALBUMIN 3.1 g/dL (3.5-5.0); BILIRUBIN,TOTAL 0.5 mg/dL (0.2-1.0); CREATININE 0.9 mg/dL (0.5-1.0); POTASSIUM 3.8 mmol/L (3.5-5.1); TOTAL PROTEIN, SERUM 6.7 g/dL (6.0-8.3)
[2024-10-28 08:00] VITALS: BP 154/91; PULSE 70; RESP 20; TEMP 97.7; O2SAT 99
[2024-10-28 11:38] LABS: INR 1.11 (0.85-1.15); PROTHROMBIN TIME 11.6 SEC (9.6-11.6)
[2024-10-28 11:42] VITALS: BP 157/86; PULSE 68; RESP 18; TEMP 98.2
--- NOTE | 2024-10-28 12:34 | PN ---
INFECTIOUS DISEASE PROGRESS NOTE Date of Service: October 28, 2024 SUBJECTIVE: This is a 59-year-old female patient who was seen and examined at bedside in room 330. Patient is awake, alert and oriented x3. Patient is afebrile this morning, temperature is 97.7�. The Final urine cultures results came back positive for ESBL, E coli. We will have case management evaluate for referral to [facility] for outpatient IV antibiotics with Zosyn IV x [address] midline. The NG tube has been clamped and patient was started on clear liquid diet. Denying nausea and vomiting. No other issues reported by nursing. PHYSICAL EXAM EYES: Anicteric. Pupils equal and reactive. HENT: No oral thrush seen, moist Oral mucosa. NG tube in place. NECK: Supple, no JVD or thyromegaly. LUNGS: Good air entry. No rales, no rhonchi. CARDIOVASCULAR: S1, S2 regular. No murmur heard. ABDOMEN: Soft, bowel sounds present, no organomegaly. Tenderness on palpation, decreasing. CENTRAL NERVOUS SYSTEM: Awake, alert, oriented x 3. SKIN: No rashes, no swelling. LYMPHATICS: No peripheral lymphadenopathy. MUSCULOSKELETAL: No joint swelling, erythema or tenderness. EXTREMITIES: No cyanosis or clubbing. BACK: No deformity, no pressure ulcer. GENITOURINARY: No dysuria or hematuria. Vital Sign (Last 12 Hours) 10/28/24 10/28/24 10/28/24 03:12 08:00 11:42 Temp 98.1 97.7 98.2 Pulse 70 70 68 Resp 20 20 18 B/P (MAP) 161/93 154/91 157/86 Pulse Ox 99 99 100 O2 Delivery Room Air Room Air Room Air FiO2 21 21 Intake & Output (last 24hrs) 10/27/24 10/27/24 10/28/24 14:59 22:59 06:59 Intake Total 150.0 ml 1130.0 ml 290.0 ml Balance 150.0 ml 1130.0 ml 290.0 ml LABS: Laboratory: Test 10/28/24 07:41 10/28/24 06:41 10/27/24 06:29 Range/Units Prothrombin Time 11.6 9.6-11.6 SEC Prothromb Time International Ratio 1.11 0.85-1.15 Sodium Level 142 136-145 mmol/L Potassium Level 3.8 3.5-5.1 mmol/L Chloride Level 105 101-111 mmol/L Carbon Dioxide Level 32 21-32 mmol/L Blood Urea Nitrogen 7 7-18 mg/dL Creatinine 0.9 0.5-1.0 mg/dL Glomerular Filtration Rate Calc 75 >90 mL/min Random Glucose 82 70-105 mg/dL Total Calcium 8.5 8.5-10.1 mg/dL Magnesium Level 1.80 1.80-2.40 mg/dL Total Bilirubin 0.5 0.2-1.0 mg/dL Aspartate Amino Transf (AST/SGOT) 17 10-37 U/L Alanine Aminotransferase (ALT/SGPT) 12 12-78 U/L Alkaline Phosphatase 55 50-136 U/L Total Protein 6.7 6.0-8.3 g/dL Albumin 3.1 L 3.5-5.0 g/dL White Blood Count 10.5 4.8-10.8 K/uL Red Blood Count 4.30 4.00-5.50 MIL/uL Hemoglobin 11.3 L 12.0-16.0 g/dL Hematocrit 34.0 L 36-48 % Mean Corpuscular Volume 79.1 79-99 fL Mean Corpuscular Hemoglobin 26.3 L 27.0-33.0 pg Mean Corpuscular Hemoglobin Concent 33.2 32.0-36.0 g/dL Red Cell Distribution Width 14.6 11.0-15.5 % Platelet Count 264 130-400 K/uL Mean Platelet Volume 8.5 7.5-10.5 fL Immature Granulocyte % (Auto) 0.4 0-1 % Neutrophils (%) (Auto) 79.2 H 40.0-77.0 % Lymphocytes (%) (Auto) 13.9 L 21.0-51.0 % Monocytes (%) (Auto) 4.3 3.0-13.0 % Eosinophils (%) (Auto) 1.9 0.0-8.0 % Basophils (%) (Auto) 0.3 0.0-5.0 % Neutrophils # (Auto) 8.4 H 1.8-7.7 K/uL Lymphocytes # (Auto) 1.5 1.0-4.8 K/uL Monocytes # (Auto) 0.5 0.1-1.0 K/uL Eosinophils # (Auto) 0.20 0.00-0.70 K/uL Basophils # (Auto) 0.03 0.00-0.20 K/uL Absolute Immature Granulocyte (auto 0.04 0-1 K/uL Nucleated Red Blood Cells 0.0 0.0-0.19 % ASSESSMENT: Urinary tract infection with, ESBL E coli. Infection with multidrug resistant organism. Abdominal pain. Small bowel obstruction, resolving. Nephrolithiasis. PLAN: Continue Zosyn as currently ordered. Continue pain management. Continue GI prophylaxis. General surgery following patient. Case management to evaluate for referral to [facility] for outpatient IV antibiotic with Zosyn IV every 8 hours x 14 days. Prescription for Zosyn was written. Place midline. This case was reviewed and discussed with my supervising physician and the above assessment and plan was formulated and agreed upon. ATTESTATION BY PHYSICIAN I have seen and examined the patient. I reviewed the documentation, medical decision making, and treatment plan as noted by the mid-level provider above. I agree with the findings and plan of care. TRAE CORBETT MD, [facility]TA [facility] October 28, 2024 12:34
--- NOTE | 2024-10-28 12:39 | PN ---
[facility] PROGRESS NOTE Date of Service: October 28, 2024 Time of Service: 12:31 SUBJECTIVE: HPI Patient is a 59-year-old female that was seen and examined today on 10/26/2024. Patient is a good historian of personal health. Patient states that she went to a freestanding Emergency Department, exceptional with a chief complaint of abdominal pain. Onset was 2:00 a.m. on 10/25/2024. Location is epigastric. Duration is constant with pain that waxes and wanes. Character is described as pressure. There was no alleviating factors. There was no aggravating factors. Patient reports associated nausea without any vomiting. At the freestanding Emergency Department patient had a CT abdomen and pelvis and was diagnosed with small-bowel obstruction. Transfer request was made so that patient could be evaluated by General surgery Service. Patient arrived with NG tube in place to left nares. Interval History 10/26/24: Lying in bed at the time of evaluation. Alert and oriented and in no obvious distress.Patient has an NG tube to the left nares connected to intermittent suction. However no out can be seen. Patient denies any abdominal pain, nausea or vomiting. States that she has not had flatus but had a bowel movement this morning which was normal in consistency. Vital signs were unremarkable, Magnesium 1.7 which was replaced as per protocol. General surgery is on the case. Was seen by Dr Anglin this morning. Pending recommendations. Patient with positive blood culture results from urgent care. Will start patient on Zosyn 3.375mg IV. 10/27/24: Lying in bed at the time of evaluation. Alert and oriented and in no obvious distress.Patient has an NG tube to the left nares connected to intermittent suction. However no out can be seen. Patient denies any abdominal pain, nausea or vomiting. States that she has passed flatus several times this morning.Denies any abdominal pain, nausea or vomiting. Vital signs : T 98.1, P 74, R 20, BP 149/85. Labs showed a potassium of 3.2. Will replace as per protocol NG tube was advanced yesterday but still barely any output.. KUB ordered yesterday showed no evidence of bowel dilatation to suggest obstruction. Continue with NPO. Continue with NG tube to low intermittent suction. Patient encouraged to ambulate . Plan to advance diet once flatus is more frequent. 10/29/23: Lying in bed at the time of evaluation. Alert and oriented and in no obvious distress. NG tube has westley removed. Patient denies any abdominal pain, nausea or vomiting. States that she has passed flatus several times this morning and had a bowel movement. Patient has been advanced to a clear liquid diet. Denies any abdominal pain, nausea or vomiting. Vital signs : T 98.1, P 70, R 20, BP 161/93. Patient states that she has been ambulating around the unit . REVIEW OF SYSTEMS CONSTITUTIONAL: Denies fevers, chills, or night sweats. No unintentional weight loss reported. NEUROLOGICAL: Denies headache, amaurosis fugax, motor weakness, sensory deficit, vertigo/spinning sensation, gait abnormalities, or tremors. ENT: No hearing loss, otalgia, otorrhea, rhinitis, rhinorrhea, hoarseness, or sore throat. NG tube in place CARDIOVASCULAR: Denies any exertional angina, dyspnea on exertion, orthopnea, paroxysmal nocturnal dyspnea, palpitations, life-threatening arrhythmias, claudication. PULMONARY: Denies any shortness of breath, cough, phlegm/sputum, hemoptysis, pleuritic chest pain. SLEEP: Denies morning headaches, daytime somnolence or napping. Denies d ifficulty falling asleep, staying asleep, waking from sleep. Denies knowledge of snoring. GASTROINTESTINAL: Denies any type of dysphagia to either liquids or solids. Denies nausea, vomiting, pyrosis, early satiety, abdominal pain, diarrhea, constipation, or changes in stool consistency or caliber. Denies coffee-ground emesis, hematemesis, hematochezia, or melanotic stools. GENITOURINARY: Denies frequency, urgency, nocturia, hematuria or incontinence (Storage/Irritative symptoms.) Low urinary stream, straining to void, urinary intermittency or hesitancy, splitting of the voiding stream, terminal dribbling. ENDOCRINOLOGIC: Denies polyuria, polydipsia, polyphagia or heat/cold intolerances. HEMATOLOGIC: Denies thrombophilia/previous clots, or coagulopathy/bleeding disorders. ONCOLOGIC: Denies personal history of malignancy. DERMATOLOGIC: Denies rashes or pruritus. PSYCHIATRIC: Denies any suicidal or homicidal ideation. Denies hallucinations. PHYSICAL EXAM GENERAL APPEARANCE: The patient is awake, alert, and oriented, in no acute cardiopulmonary distress. NEUROLOGICAL: Cranial nerves II-XII grossly intact. Motor is 5/5 in bilateral upper and lower extremities proximal to distal. No sensory deficits. HEENT: Face is symmetric. Pupils are equal and reactive. Extraocular movements are intact. NG tube in place NECK: Supple. No JVD. No thyromegaly. No submental, submandibular, pre- /postauricular, occipital or supraclavicular lymphadenopathy. CHEST: Normal chest expansion. No Telemetry. LUNGS: Absence of any rales, rhonchi or any wheezing. CARDIOVASCULAR: Regular. S1 and S2 normal. No appreciable rubs, murmurs or gallops. ABDOMEN: Soft, nontender, and nondistended. There is no rebound, voluntary guarding, or rigidity. : Deferred. No Draper. EXTREMITIES: Non-edematous and not cyanotic. No clubbing. Good capillary refill. SKIN: No skin breakdown. Vital Signs (last 8hr) Date Time Temp Pulse Resp B/P (MAP) Pulse Ox O2 Delivery O2 Flow Rate FiO2 10/28/24 11:42 98.2 68 18 157/86 100 Room Air 21 10/28/24 08:00 97.7 70 20 154/91 99 Room Air 21 LABS: Laboratory: Test 10/28/24 07:41 10/28/24 06:41 10/27/24 06:29 Range/Units Prothrombin Time 11.6 9.6-11.6 SEC Prothromb Time International Ratio 1.11 0.85-1.15 Sodium Level 142 136-145 mmol/L Potassium Level 3.8 3.5-5.1 mmol/L Chloride Level 105 101-111 mmol/L Carbon Dioxide Level 32 21-32 mmol/L Blood Urea Nitrogen 7 7-18 mg/dL Creatinine 0.9 0.5-1.0 mg/dL Glomerular Filtration Rate Calc 75 >90 mL/min Random Glucose 82 70-105 mg/dL Total Calcium 8.5 8.5-10.1 mg/dL Magnesium Level 1.80 1.80-2.40 mg/dL Total Bilirubin 0.5 0.2-1.0 mg/dL Aspartate Amino Transf (AST/SGOT) 17 10-37 U/L Alanine Aminotransferase (ALT/SGPT) 12 12-78 U/L Alkaline Phosphatase 55 50-136 U/L Total Protein 6.7 6.0-8.3 g/dL Albumin 3.1 L 3.5-5.0 g/dL White Blood Count 10.5 4.8-10.8 K/uL Red Blood Count 4.30 4.00-5.50 MIL/uL Hemoglobin 11.3 L 12.0-16.0 g/dL Hematocrit 34.0 L 36-48 % Mean Corpuscular Volume 79.1 79-99 fL Mean Corpuscular Hemoglobin 26.3 L 27.0-33.0 pg Mean Corpuscular Hemoglobin Concent 33.2 32.0-36.0 g/dL Red Cell Distribution Width 14.6 11.0-15.5 % Platelet Count 264 130-400 K/uL Mean Platelet Volume 8.5 7.5-10.5 fL Immature Granulocyte % (Auto) 0.4 0-1 % Neutrophils (%) (Auto) 79.2 H 40.0-77.0 % Lymphocytes (%) (Auto) 13.9 L 21.0-51.0 % Monocytes (%) (Auto) 4.3 3.0-13.0 % Eosinophils (%) (Auto) 1.9 0.0-8.0 % Basophils (%) (Auto) 0.3 0.0-5.0 % Neutrophils # (Auto) 8.4 H 1.8-7.7 K/uL Lymphocytes # (Auto) 1.5 1.0-4.8 K/uL Monocytes # (Auto) 0.5 0.1-1.0 K/uL Eosinophils # (Auto) 0.20 0.00-0.70 K/uL Basophils # (Auto) 0.03 0.00-0.20 K/uL Absolute Immature Granulocyte (auto 0.04 0-1 K/uL Nucleated Red Blood Cells 0.0 0.0-0.19 % Current Medications Medications (Trade) Dose Ordered Sig/Lizet Route PRN Reason Start Time Stop Time Status Last Admin Dose Admin Acetaminophen (TYLenol 650MG SUPPOSITORY) 650 mg Q6H PRN RC MILD PAIN (1-3) 10/26/24 04:00 11/25/24 03:59 Famotidine (Pepcid 20mg Vial) 20 mg DAILY IV 10/26/24 09:00 11/25/24 08:59 10/28/24 08:30 20 MG Hydralazine HCl (APRESOLine 20MG INJ) 10 mg Q6H PRN IV For:SBP above 160;DBP above 90 10/26/24 04:00 11/25/24 03:59 Lactated Ringer's 1,000 ml @ 75 mls/hr [id number] IV 10/26/24 04:00 11/25/24 03:59 10/28/24 09:52 75 MLS/HR Magnesium Sulfate 50 ml @ 0 mls/hr PROTOCOL PRN IV PHARMACY DOSING 10/26/24 09:00 11/25/24 08:59 10/28/24 09:52 25 MLS/HR Morphine Sulfate (morPHINE 2MG SYG) 2 mg Q4H PRN IVP SEVERE PAIN (7-10) 10/26/24 04:30 11/02/24 04:29 10/27/24 00:10 2 MG Ondansetron HCl (zoFRAN 4MG INJ) 4 mg Q6H PRN IV NAUSEA/VOMITING 10/26/24 04:00 11/25/24 03:59 Phenylephrine HCl (TIARA-synEPHRINE 0.5% NASAL SPRY) 1 spray ONCE STAT NASAL 10/26/24 14:54 10/26/24 14:56 DC 10/26/24 15:00 1 SPRAY Piperacillin Sod/ Tazobactam Sod (Zosyn 3.375gm+NS 50ml) 3.375 gm Q8H IVPB 10/26/24 12:00 11/05/24 11:59 10/28/24 03:25 3.375 GM Potassium Chloride 100 ml @ 50 mls/hr AD PRN IV POTASSIUM PROTOCOL 10/27/24 10:00 11/26/24 09:59 10/27/24 10:40 50 MLS/HR Potassium Chloride 100 ml @ 100 mls/hr AD PRN IV POTASSIUM PROTOCOL 10/26/24 09:00 10/27/24 09:51 DC Potassium Chloride (K-Dur/Klor-Con 20meq) 20 meq AD PRN PO POTASSIUM PROTOCOL 10/26/24 09:00 11/25/24 08:59 10/28/24 06:48 20 MEQ Potassium Chloride (KCl 10% Elixir 20meq/15ml) 20 meq AD PRN PO POTASSIUM PROTOCOL 10/26/24 09:00 11/25/24 08:59 10/27/24 17:31 20 MEQ Sodium Chloride (NS 50ml) 50 ml AD IV 10/26/24 12:00 11/25/24 11:59 DIAGNOSTICS / RADIOLOGY: [ ] ASSESSMENT: Small-bowel obstruction, POA Celiac disease POA Hypomagnesemia Hypokalemia PLAN *Patient has had a bowel movement and is ambulating around the unit *Advanced to clear liquid diet. *NG tube removed *KUB ordered yesterday showed no evidence of bowel dilatation to suggest obstruction. *General Surgery on the case. Seen by Dr Anglin today. Keep patient NPO. Zosyn 3.375g IV ordered Consult placed for Infectious Disease due to positive blood cultures. Nasogastric tube to intermittent wall suction. IV fluid maintenance therapy lactated Ringer's at 75 mL/HR As needed analgesia with morphine. GI prophylaxis, famotidine DVT prophylaxis, Gino's and SCDs PLAN: [ ] ATTESTATION BY PHYSICIAN I have seen and examined the patient. I reviewed the documentation, medical decision making, and treatment plan as noted by the resident provider above. I agree with the findings and plan of care. Alee Guzman MD OBI,SILVANO Cali MD October 28, 2024 12:39
[2024-10-28 15:39] VITALS: BP 157/92; PULSE 86; RESP 19; TEMP 98.3
--- NOTE | 2024-10-28 15:42 | PN ---
GENERAL SURGERY PROGRESS NOTE Date/Time Patient Seen: [October 28, 2024 14:20 ] Problem List: Small bowel obstruction versus ileus Interval History: Patient continued to pass flatus. She denies nausea and vomiting. She has been tolerating her clears. She denies abdominal pain. Current Medications Medications (Trade) Dose Ordered Sig/Lizet Route Start Time Stop Time Status Last Admin Dose Admin Famotidine (Pepcid 20mg Vial) 20 mg DAILY IV 10/26/24 09:00 11/25/24 08:59 10/28/24 08:30 20 MG Lactated Ringer's 1,000 ml @ 75 mls/hr [id number] IV 10/26/24 04:00 11/25/24 03:59 10/28/24 09:52 75 MLS/HR Phenylephrine HCl (TIARA-synEPHRINE 0.5% NASAL SPRY) 1 spray ONCE STAT NASAL 10/26/24 14:54 10/26/24 14:56 DC 10/26/24 15:00 1 SPRAY Piperacillin Sod/ Tazobactam Sod (Zosyn 3.375gm+NS 50ml) 3.375 gm Q8H IVPB 10/26/24 12:00 11/05/24 11:59 10/28/24 13:33 3.375 GM Sodium Chloride (NS 50ml) 50 ml AD IV 10/26/24 12:00 11/25/24 11:59 Physical Examination: GENERAL: [No acute distress.] HEAD: [Normal with no signs of head trauma.] EYES: [PERRLA, EOMI, conjunctiva and sclera normal.] ENT: [Hearing grossly intact, normal oropharynx.] NECK: [Supple without JVD. There is no tenderness, lymphadenopathy, or masses. No thyromegaly. Normal carotid upstrokes without bruits.] LUNGS: [Clear breath sounds bilaterally. There are right basilar rales one third of the way up the chest. No wheezes, or rhonchi.] HEART: [Normal rate and rhythm. Normal S1 and S2 without mumurs, gallop or rub.] VASC: [Peripheral pulses +2 bilaterally.] ABD: [Bowel sounds normal, soft, nontender, no masses, no organomegaly. No audible bruits.] : [Not examined] LYMPH: [No lymphadenopathy noted.] EXT: [No clubbing, cyanosis or edema.] SKIN: [No rashes or lesions noted.] NEURO: [Awake, alert, and oriented x3. No focal sensory or strength deficits noted.] Vital Signs (last 8hr) Date Time Temp Pulse Resp B/P (MAP) Pulse Ox O2 Delivery O2 Flow Rate FiO2 10/28/24 11:42 98.2 68 18 157/86 100 Room Air 21 10/28/24 08:00 97.7 70 20 154/91 99 Room Air 21 Laboratory: [ ] Hematology Labs: Test 10/27/24 06:29 Range/Units White Blood Count 10.5 4.8-10.8 K/uL Red Blood Count 4.30 4.00-5.50 MIL/uL Hemoglobin 11.3 L 12.0-16.0 g/dL Hematocrit 34.0 L 36-48 % Mean Corpuscular Volume 79.1 79-99 fL Mean Corpuscular Hemoglobin 26.3 L 27.0-33.0 pg Mean Corpuscular Hemoglobin Concent 33.2 32.0-36.0 g/dL Red Cell Distribution Width 14.6 11.0-15.5 % Platelet Count 264 130-400 K/uL Mean Platelet Volume 8.5 7.5-10.5 fL Immature Granulocyte % (Auto) 0.4 0-1 % Neutrophils (%) (Auto) 79.2 H 40.0-77.0 % Lymphocytes (%) (Auto) 13.9 L 21.0-51.0 % Monocytes (%) (Auto) 4.3 3.0-13.0 % Eosinophils (%) (Auto) 1.9 0.0-8.0 % Basophils (%) (Auto) 0.3 0.0-5.0 % Neutrophils # (Auto) 8.4 H 1.8-7.7 K/uL Lymphocytes # (Auto) 1.5 1.0-4.8 K/uL Monocytes # (Auto) 0.5 0.1-1.0 K/uL Eosinophils # (Auto) 0.20 0.00-0.70 K/uL Basophils # (Auto) 0.03 0.00-0.20 K/uL Absolute Immature Granulocyte (auto 0.04 0-1 K/uL Nucleated Red Blood Cells 0.0 0.0-0.19 % Chemistry Labs: Test 10/28/24 06:41 Range/Units Sodium Level 142 136-145 mmol/L Potassium Level 3.8 3.5-5.1 mmol/L Chloride Level 105 101-111 mmol/L Carbon Dioxide Level 32 21-32 mmol/L Blood Urea Nitrogen 7 7-18 mg/dL Creatinine 0.9 0.5-1.0 mg/dL Glomerular Filtration Rate Calc 75 >90 mL/min Random Glucose 82 70-105 mg/dL Total Calcium 8.5 8.5-10.1 mg/dL Magnesium Level 1.80 1.80-2.40 mg/dL Total Bilirubin 0.5 0.2-1.0 mg/dL Aspartate Amino Transf (AST/SGOT) 17 10-37 U/L Alanine Aminotransferase (ALT/SGPT) 12 12-78 U/L Alkaline Phosphatase 55 50-136 U/L Total Protein 6.7 6.0-8.3 g/dL Albumin 3.1 L 3.5-5.0 g/dL Coagulation Labs: Test 10/28/24 07:41 Range/Units Prothrombin Time 11.6 9.6-11.6 SEC Prothromb Time International Ratio 1.11 0.85-1.15 Diagnostics / Radiology: None Impression and Plan: 59-year-old female with small-bowel obstruction versus ileus (she had pyelonephritis)--it has resolved She has opened up and is tolerating a clear liquid diet DC NG tube and We will advance her to a full liquid diet and advance her diet as tolerated She can be discharged from a surgical perspective as after she tolerates a soft diet She does not need to follow up with me in the office FRANCIS MENEZES MD October 28, 2024 15:42
[2024-10-28 20:00] VITALS: BP 149/86; PULSE 82; RESP 16; TEMP 98.1; O2SAT 99
[2024-10-29] VITALS: BP 160/88; PULSE 68; RESP 16; TEMP 98
[2024-10-29 04:00] VITALS: BP 156/88; PULSE 55; RESP 20; TEMP 98
[2024-10-29 08:00] VITALS: BP 135/85; PULSE 74; RESP 16; TEMP 97.9; O2SAT 98
--- NOTE | 2024-10-29 08:47 | DS ---
Discharge Summary Hospital Course Summary: Patient Information: *Name:Wade Baker *Date of :69 *Admission Date:10/26/24 *Discharge Date:10/29/24 Attending Physician:Dr Vickers Admitting Diagnosis: Small Bowel Obstruction Course in Hospital: Patient was admitted to the hospital on 10/26/24 with symptoms of epigastric pain, rated as a 10/10. Apparently patient had gone first to a free standing emergency room where a CT of the abdomen and pelvis had shown evidence of a small bowel obstruction. A nasogastric tube was placed and patient was transferred to [facility] for further evaluation and management. General surgery was notified and the nasogastric tube was connected to low intermittent suction. Xray of the abdomen done here in the hospital showed a normal abdomen and no evidence of bowel dilatation to suggest an obstruction. Patient was carefully observed for a few days . Urine culture was positive for Ecoli. Infectious disease was notified. Following the course of her stay here in the hospital, her symptoms improved significantly. Patient was able to pass flatus and have a bowel movement. General surgery then signed off the case with instructions not to follow up as an outpatient. Infectious Disease made arrangements for patient to receive IV antibiotics at home. Procedures performed: CBC, CMP, CXR, Blood cultures. Urine cultures Discharge Instructions: *Follow up with your primary care physician in 2 - 3 days after discharge. *Continue all medications as prescribed. Do not discontinue or change dosages without consulting your PCP. *Gradually resume normal activities as tolerated. *Continue a balanced diet . Reduce salt intake to help manage BP. *Seek immediate medical attention if you experience chest pain, SOB or severe headache. *Smoking cessation is strongly advised. Resources for quitting smoking are available upon request. Discharged to: Home Condition on Discharge: Stable Supervisor Calibration(s): General Surgery( Dr Anglin) Infectious Disease (Dr Mendoza) Assessment/Plan: ASSESSMENT: Small-bowel obstruction, POA Hx ofCeliac disease POA Hypomagnesemia(resolved) Hypokalemia(resolved) PLAN *Instructed patient to follow up with Infectious Disease for completion of IV antibiotics. Discharge Instructions: Discharge Instructions: *Follow up with your primary care physician in 2 - 3 days after discharge. *Continue all medications as prescribed. Do not discontinue or change dosages without consulting your PCP. *Gradually resume normal activities as tolerated. *Continue a balanced diet . Reduce salt intake to help manage BP. *Seek immediate medical attention if you experience chest pain, SOB or severe headache. *Smoking cessation is strongly advised. Resources for quitting smoking are available upon request. Time spent arranging discharge: 1-30 minutes SILVANO WASHINGTON MD October 29, 2024 08:47
--- NOTE | 2024-10-29 10:49 | PN ---
This is a 59-year-old female with a resolving small-bowel obstruction Interval history: This 59-year-old female seen in her room resting tolerating diet No abdominal pain Multiple bowel movements reported Physical exam General: Awake alert and oriented Heart: Regular rate and rhythm} Lungs: Clear to auscultation no distress Abdomen: [Soft, nontender, nondistended Assessment : This is a 59-year-old female with a resolving small-bowel obstruction Plan: From surgical standpoint patient cleared for discharge Recommendation is for patient to follow up with PCP Increased water intake Avoid constipation No further surgical intervention needed at this time patient is cleared for discharge Vitals/Labs Vital Signs Date Time Temp Pulse Resp B/P (MAP) Pulse Ox O2 Delivery O2 Flow Rate FiO2 10/29/24 08:00 97.9 74 16 135/85 98 Room Air 21 10/28/24 20:00 0 Medications Current Medications Acetaminophen 650 mg Q6H PRN RC; Start 10/26/24 at 04:00; Stop 11/25/24 at 03:59 Ondansetron HCl 4 mg Q6H PRN IV; Start 10/26/24 at 04:00; Stop 11/25/24 at 03:59 Morphine Sulfate 2 mg Q4H PRN IVP Last administered on 10/27/24at 00:10; Start 10/26/24 at 04:30; Stop 11/02/24 at 04:29 Lactated Ringer's 1,000 ml @ 75 mls/hr [id number] IV Last administered on 10/28/24at 22:10; Start 10/26/24 at 04:00; Stop 11/25/24 at 03:59 Hydralazine HCl 10 mg Q6H PRN IV; Start 10/26/24 at 04:00; Stop 11/25/24 at 03:59 Famotidine 20 mg DAILY IV Last administered on 10/29/24at 08:11; Start 10/26/24 at 09:00; Stop 11/25/24 at 08:59 Magnesium Sulfate 50 ml @ 0 mls/hr PROTOCOL PRN IV Last administered on at 09:52; Start 10/26/24 at 09:00; Stop 11/25/24 at 08:59 Potassium Chloride 100 ml @ 100 mls/hr AD PRN IV; Start 10/26/24 at 09:00; Stop 10/27/24 at 09:51; Status DC Potassium Chloride 20 meq AD PRN PO Last administered on 10/27/24at 17:31; Star t 10/26/24 at 09:00; Stop 11/25/24 at 08:59 Potassium Chloride 20 meq AD PRN PO Last administered on 10/28/24at 06:48; Start 10/26/24 at 09:00; Stop 11/25/24 at 08:59 Piperacillin Sod/ Tazobactam Sod 3.375 gm Q8H IVPB Last administered on 10/29/24at 03:48; Start 10/26/24 at 12:00; Stop 11/05/24 at 11:59 Sodium Chloride 50 ml AD IV; Start 10/26/24 at 12:00; Stop 11/25/24 at 11:59 Phenylephrine HCl 1 spray ONCE STAT NASAL Last administered on 10/26/24at 15:00; Start 10/26/24 at 14:54; Stop 10/26/24 at 14:56; Status DC Potassium Chloride 100 ml @ 50 mls/hr AD PRN IV Last administered on 10/27/24at 10:40; Start 10/27/24 at 10:00; Stop 11/26/24 at 09:59 JEANNINE SHOEMAKER Jr. October 29, 2024 10:49
[2024-10-29 11:55] VITALS: BP 158/78; PULSE 77; RESP 16; TEMP 98.2
--- NOTE | 2024-10-29 14:16 | NUR ---
Discharge Update: Received call from [employer] that patient's insurance is OON. Referral sent to [facility]. Pending insurance authorization.
--- NOTE | 2024-10-29 15:12 | NUR ---
PATIENT IS DISCHARGED. IV TAKEN OUT WITH CATHETER INTACT. EDUCATION GIVEN TO PATIENT ON FOLLOWING UP OUTPATIENT FOR IV THERAPY.
--- NOTE | 2024-10-29 17:04 | NUR ---
Discharge Update: Patient accepted at [facility]. Plan is for discharge home this afternoon.
--- NOTE | 2024-10-30 18:36 | PN ---
INFECTIOUS DISEASE FOLLOWUP NOTE DATE OF SERVICE: 10/29/2024. SUBJECTIVE: The patient is seen and examined at bedside. No fever or chills. No nausea, vomiting. Tolerating orally. The patient is also having more bowel movements. She denied cough, shortness of breath. No palpitations or orthopnea. The patient is tolerating antibiotics. No dysuria or hematuria. No bleeding tendencies. No rashes or itchiness. PHYSICAL EXAMINATION: VITAL SIGNS: Temperature 96.9. EYES: No icterus. Pupils are equal and reactive. HENT: No oral thrush seen. Moist oral mucosa. NECK: Supple. No JVD or thyromegaly. LUNGS: Good air entry. No rales. No rhonchi. CARDIOVASCULAR: S1, S2, regular. No murmur heard. ABDOMEN: Full, soft, nontender. Bowel sound is present. CENTRAL NERVOUS SYSTEM: Awake, alert, and oriented x 3. No focal deficits. SKIN: No rashes. No itchiness. LYMPHATIC: No peripheral lymphadenopathy. BACK: No deformity. No pressure ulcer. MUSCULOSKELETAL: No joint swelling, erythema, or tenderness. ASSESSMENT: A 59-year-old female admitted with nausea, vomiting, fever, and chills. CURRENT PROBLEMS: Include: * Gram-negative sepsis. * Urinary tract infection. * The patient with multidrug resistant organism. * Abdominal pain. * Small-bowel obstruction which has resolved. * Debility. PLAN: * Continue antibiotic. * Continue pain management. * Continue antiemetic. * Continue nutritional support. * Continue GI prophylaxis. * Monitor electrolytes. * The patient will be followed up closely. TID: [id number] RECEIPT: [id number]
== END 2024-10-29 15:12 | disposition home or self-care (01) | DRG 872 ==
LOC: 3AH 03:44
PROVIDERS: ADMIT Internal Medicine; ATTEND Internal Medicine
PROC: 0D9670Z Drainage of Stomach with Drainage Device, Via Natural or Artificial Opening (ICD-10-PCS; principal; 2024-10-26)
PROC: 05HY33Z Insertion of Infusion Device into Upper Vein, Percutaneous Approach (ICD-10-PCS; 2024-10-28)
DX: A41.50 Gram-negative sepsis, unspecified (principal); N39.0 Urinary tract infection, site not specified; Z16.24 Resistance to multiple antibiotics; K56.699 Other intestinal obstruction unspecified as to partial versus complete obstruction; K90.0 Celiac disease; B96.20 Unspecified Escherichia coli [E. coli] as the cause of diseases classified elsewhere; E83.42 Hypomagnesemia; E87.6 Hypokalemia; Z80.1 Family history of malignant neoplasm of trachea, bronchus and lung; Z81.8 Family history of other mental and behavioral disorders; Z82.49 Family history of ischemic heart disease and other diseases of the circulatory system; Z83.3 Family history of diabetes mellitus; Z87.442 Personal history of urinary calculi; Z51.5 Encounter for palliative care
CPT/HCPCS: 36415; 36556; 71045; 74018; 80053; 81001; 83735; 84100; 85025; 85610; 85730; 87040; 87086; 87186; 93005; C1894; G0378; J2270; J2543; J3475; J3480; J3490; A4600; C1750